=== PATIENT | male | born 1980 | race African-American/Black ===

== ENCOUNTER 2022-11-10 11:59 | Inpatient (IN) | payer OTHER ==
[2022-11-10 12:49] VITALS: BMI 27.4
[2022-11-10] MEDS ORDERED: BENZOCAINE/MENTHOL (CHLORASEPTIC ) LOZENGE MM PRN (15:49)
[2022-11-10] MEDS ORDERED: BISMUTH SUBSALICYLATE 524 MG/30 ML PO PRN (15:49)
[2022-11-10] MEDS ORDERED: guaiFENesin 600 MG TABLET.ER (FP) PO PRN (15:49)
[2022-11-10] MEDS ORDERED: DICYCLOMINE HCL 10 MG CAPSULE PO PRN (15:49)
[2022-11-10] MEDS ORDERED: IBUPROFEN 600 MG TABLET (FP) PO PRN (15:49)
[2022-11-10] MEDS ORDERED: ACETAMINOPHEN 325 MG TABLET (FP) PO PRN (15:49)
[2022-11-10] MEDS ORDERED: LORazepam 1 MG TABLET PO PRN (15:49)
[2022-11-10] MEDS ORDERED: NALOXONE HCL 0.4 MG/ML VIAL IM PRN (15:49)
[2022-11-10] MEDS ORDERED: ONDANSETRON *ODT* 4 MG TABLET SL PRN (15:49)
[2022-11-10] MEDS ORDERED: IBUPROFEN 400 MG TABLET (FP) PO PRN (15:49)
[2022-11-10] MEDS ORDERED: POLYETHYLENE GLYCOL (HEALTHYLAX) 3350 17 GM PACKET PO PRN (15:49)
[2022-11-10] MEDS ORDERED: LOPERAMIDE HCL 2 MG CAPSULE PO PRN (15:49)
[2022-11-10] MEDS ORDERED: MAG HYDROX/AL HYDROX/SIMETH 30 ML UNIT-DOSE CUP PO PRN (15:49)
[2022-11-10] MEDS ORDERED: MAGNESIUM HYDROX 2400MG/30ML ORAL SUSPENSION 30 ML CUP PO PRN (15:49)
[2022-11-10] MEDS ORDERED: NALOXONE HCL (KLOXXADO) 8 MG SPRAY NS PRN (15:49)
[2022-11-10] MEDS ORDERED: BENZONATATE 200 MG CAPSULE PO PRN (15:49)
[2022-11-10] MEDS: PRENATAL VITAMINS W/ FOLIC ACID TABLET (FP) PO SCH (18:50)
[2022-11-10] MEDS: hydrOXYzine PAMOATE 25 MG CAPSULE (FP) PO PRN (18:50)
[2022-11-10] MEDS: levETIRAcetam 500 MG TABLET (FP) PO SCH (22:15)
[2022-11-10] MEDS: MELATONIN 5 MG TABLETS PO SCH (22:15)
[2022-11-10] MEDS: THIAMINE HCL 100 MG TABLET (FP) PO SCH (22:15)
[2022-11-10] MEDS: LORazepam 2 MG TABLET PO SCH (22:16)
[2022-11-11] MEDS: LORazepam 2 MG TABLET PO SCH ×4 (05:54→22:27)
[2022-11-11] MEDS: levETIRAcetam 500 MG TABLET (FP) PO SCH ×2 (10:43→22:27)
[2022-11-11] MEDS: NICOTINE 14 MG/24 HOURS TOPICAL PATCH TD SCH (10:43)
[2022-11-11] MEDS: PRENATAL VITAMINS W/ FOLIC ACID TABLET (FP) PO SCH (10:43)
[2022-11-11] MEDS: risperiDONE 1 MG TABLET PO SCH ×2 (10:43→22:27)
[2022-11-11 11:54] LABS: POTASSIUM 4.1 mmol/L (3.5-5.1)
[2022-11-11 11:55] LABS: HEMOGLOBIN 13.6 GM/dL (11.7-16.9); MCH 31.1 pg (25.7-33.7); MCHC 33.2 g/dl (32.0-35.9); MEAN CELL VOLUME 93.7 fl (80-96); MEAN PLT VOLUME 9.9 fl (7.5-11.1); PLATELET COUNT 247 10^3/uL (134-434); RBC 4.37 M/mm3 (4.00-5.60); RDW 13.3 % (11.9-15.9); WHITE BLOOD COUNT 5.6 K/mm3 (4.0-10.0)
[2022-11-11 12:53] LABS: ALBUMIN 3.5 g/dl (3.4-5.0); BLOOD UREA NITROGEN 5.6 mg/dL (7-18); CALCIUM 8.7 mg/dL (8.5-10.1)
[2022-11-11 12:58] LABS: CREATININE 1.1 mg/dL (0.55-1.3); TOT PROT 6.1 g/dl (6.4-8.2)
[2022-11-11] MEDS: THIAMINE HCL 100 MG TABLET (FP) PO SCH (22:27)
[2022-11-11] MEDS: MELATONIN 5 MG TABLETS PO SCH (22:29)
[2022-11-12] MEDS: LORazepam 1 MG TABLET PO SCH ×4 (05:52→22:20)
[2022-11-12] MEDS: risperiDONE 1 MG TABLET PO SCH ×2 (10:24→22:20)
[2022-11-12] MEDS: METHOCARBAMOL 500 MG TABLET PO PRN (10:24)
[2022-11-12] MEDS: levETIRAcetam 500 MG TABLET (FP) PO SCH ×2 (10:24→22:19)
[2022-11-12] MEDS: PRENATAL VITAMINS W/ FOLIC ACID TABLET (FP) PO SCH (10:24)
[2022-11-12] MEDS: LACTULOSE 20 GM/30 ML UDC (FOR ORAL USE ONLY) PO SCH ×4 (10:25→22:20)
[2022-11-12] MEDS: NICOTINE 14 MG/24 HOURS TOPICAL PATCH TD SCH (10:25)
[2022-11-12] MEDS: THIAMINE HCL 100 MG TABLET (FP) PO SCH (22:19)
[2022-11-12] MEDS: MELATONIN 5 MG TABLETS PO SCH (23:01)
[2022-11-13] MEDS ORDERED: LORazepam 0.5 MG TABLET PO PRN
[2022-11-13] MEDS: LORazepam 0.5 MG TABLET PO SCH ×4 (05:27→22:15)
[2022-11-13] MEDS: LACTULOSE 20 GM/30 ML UDC (FOR ORAL USE ONLY) PO SCH ×4 (10:29→22:15)
[2022-11-13] MEDS: risperiDONE 1 MG TABLET PO SCH ×2 (10:29→22:15)
[2022-11-13] MEDS: METHOCARBAMOL 500 MG TABLET PO PRN (10:29)
[2022-11-13] MEDS: hydrOXYzine PAMOATE 25 MG CAPSULE (FP) PO PRN (10:30)
[2022-11-13] MEDS: levETIRAcetam 500 MG TABLET (FP) PO SCH ×2 (10:30→22:16)
[2022-11-13] MEDS: NICOTINE 14 MG/24 HOURS TOPICAL PATCH TD SCH (10:31)
[2022-11-13] MEDS: PRENATAL VITAMINS W/ FOLIC ACID TABLET (FP) PO SCH (10:31)
[2022-11-13 17:23] VITALS: RESP 17
[2022-11-13] MEDS: THIAMINE HCL 100 MG TABLET (FP) PO SCH (22:15)
[2022-11-13] MEDS: MELATONIN 5 MG TABLETS PO SCH (22:15)
[2022-11-14] MEDS ORDERED: LORazepam 0.5 MG TABLET PO ONE (05:00)
[2022-11-14 09:15] VITALS: BP 122/75; PULSE 86; TEMP 98.1
[2022-11-14] MEDS: LACTULOSE 20 GM/30 ML UDC (FOR ORAL USE ONLY) PO SCH (10:12)
[2022-11-14] MEDS: PRENATAL VITAMINS W/ FOLIC ACID TABLET (FP) PO SCH (10:12)
[2022-11-14] MEDS: NICOTINE 14 MG/24 HOURS TOPICAL PATCH TD SCH (10:12)
[2022-11-14] MEDS: METHOCARBAMOL 500 MG TABLET PO PRN (10:13)
[2022-11-14] MEDS: hydrOXYzine PAMOATE 25 MG CAPSULE (FP) PO PRN (10:13)
[2022-11-14] MEDS: levETIRAcetam 500 MG TABLET (FP) PO SCH (10:13)
[2022-11-14] MEDS: risperiDONE 1 MG TABLET PO SCH (10:13)
== END 2022-11-14 12:10 | disposition other institution (70) | DRG 775 ==
LOC: YASAS 11:59 → Y6N 18:05
PROVIDERS: ADMIT Allergy & Immunology; ATTEND Surgery
PROC: HZ2ZZZZ Detoxification Services for Substance Abuse Treatment (ICD-10-PCS; principal; 2022-11-10)
DX: F10.230 Alcohol dependence with withdrawal, uncomplicated (principal); F12.20 Cannabis dependence, uncomplicated; F17.210 Nicotine dependence, cigarettes, uncomplicated; F25.9 Schizoaffective disorder, unspecified; I10 Essential (primary) hypertension; R79.89 Other specified abnormal findings of blood chemistry; R56.9 Unspecified convulsions; I69.851 Hemiplegia and hemiparesis following other cerebrovascular disease affecting right dominant side; I69.820 Aphasia following other cerebrovascular disease
CPT/HCPCS: 36415; 80053; 80177; 82140; 85027; 86780; 87635; 93005; 93010